=== PATIENT | female | born 1950 | race Caucasian/White ===

== ENCOUNTER 2021-08-16 15:43 | Outpatient (REF) | payer MEDICARE, OTHER, SELFPAY ==
[2021-08-16 20:00] LABS: HCT 40.5 % (36.0-46.0); HGB 12.9 g/dL (11.2-15.7); MCH 31.5 pg (27.0-33.0); MCHC 31.9 % (32.0-36.0); MCV 98.8 fL (80-95); MPV 9.9 fL (8.0-11.0); Platelet Count 333 10^3/uL (130-400); RDW-SD 47.2 fL; WBC 6.05 10^3/uL (4.4-10.8)
[2021-08-16 20:14] LABS: Anion Gap 11.6 mmol/L (3-11); BUN 22 mg/dL (7-18); CO2 25.4 mmol/L (21.0-32.0); Chloride 103 mmol/L (98-107); Estimated GFR 54.81 (mL/min/1.73m2); Glucose 71 mg/dL (74-106); Potassium 4.3 mmol/L (3.5-5.1); Sodium 140 mmol/L (136-145)
== END 2021-08-16 15:44 | disposition home or self-care (01) ==
LOC: NCHCN 15:43
PROVIDERS: Visit Provider Nurse Practitioner Family
DX: Z00.00 Encounter for general adult medical examination without abnormal findings (principal)
CPT/HCPCS: 80048; 85027

== ENCOUNTER 2021-08-25 01:26 | Outpatient (CLI) | payer MEDICARE, OTHER, SELFPAY ==
--- NOTE | 2021-08-25 | DI.MAMMO_ITS ---
Exam(s) MAMMO SCREENING EXAM: MAMMO SCREENING CLINICAL HISTORY: SCREENING, Z12.39 TECHNIQUE: Mammograms were interpreted according to the usual protocol including computer analysis w [employer] CAD system, tomosynthesis and C-view imaging. COMPARISON: FINDINGS: The breasts are heterogeneously dense with fairly symmetrical distribution of fibroglandular tissue. No dominant mass or clumped microcalcification is identified in either breast. Current examination is compared with prior examination of October 2020 and there has been no gross interval change appearance comparison with the previous study. IMPRESSION: No specific evidence of malignancy at this time. Routine screening examinations are suggested at yea rly intervals due to the family history of breast carcinoma. BI-RADS Category 1 - Negative Breast Density - Category C - Heterogeneously dense
== END 2021-08-25 01:46 ==
PROVIDERS: Visit Provider Nurse Practitioner Family
DX: Z12.31 Encounter for screening mammogram for malignant neoplasm of breast (principal); R92.8 Other abnormal and inconclusive findings on diagnostic imaging of breast
CPT/HCPCS: 77063; 77067

== ENCOUNTER 2022-03-02 15:48 | Outpatient (REF) | payer MEDICARE, OTHER, SELFPAY ==
--- NOTE | 2022-03-02 14:40 | PAPFT_PTH ---
PATIENT: Sarah Patterson LOC: [facility] U#:[id number] AGE/SX: 71/F ROOM: RE03/02/[address]: Jerilyn Tadeo DO : 1950 BED: DIS: 03/02/2022 SPEC #: [id number] RECD: 03/02/22 17:39 STATUS: SOUBharat REQ #: [id number] DORIE: 03/02/22 14:[address]: Jerilyn Tadeo DEPT: [facility] Cytology RECD BY: Violet Francois ENTERED: 03/02/22 17:40 SP TYPE: PAPFT OT DR: Unknown,Unknown Tissues: 1 - CX/ENDOCX FOR PAP SMEARS Procedures: PAP THIN PREP/UVM Screening HPV DNA PROBE Comments: [id number]
== END 2022-03-02 15:49 | disposition home or self-care (01) ==
LOC: LBN 15:48
PROVIDERS: Visit Provider Obstetrics & Gynecology
DX: Z12.4 Encounter for screening for malignant neoplasm of cervix (principal); Z11.51 Encounter for screening for human papillomavirus (HPV); Z01.419 Encounter for gynecological examination (general) (routine) without abnormal findings
CPT/HCPCS: 88142; 87624

== ENCOUNTER → 2022-03-28 01:46 | Outpatient (CLI) | payer MEDICARE, OTHER, SELFPAY ==
--- NOTE | 2022-03-28 07:45 | DI.US_ITS ---
Exam(s) US PELVIS EXAM: US PELVIS CLINICAL HISTORY: check anatomy,HANH EXPOSURE IN UTERO, Z91.89 TECHNIQUE: Transabdominal was performed using standard protocol. Patient unable to tolerate transv aginal imaging. COMPARISON: No exams were available for comparison FINDINGS: UTERUS: Anteverted. 5.1 x 1.7 x 2.9 cm Endometrium: 2 mm Myometrium: Unremarkable. Cervix: Unremarkable. OVARIES: Not visible CUL-DE-SAC: Free fluid: None. IMPRESSION: 1. Limited exam. Grossly normal-appearing uterus with endometrial stripe within normal limits. 2. Ovaries not visible DATA REPOSITORY:
== END ==
PROVIDERS: Visit Provider Obstetrics & Gynecology
DX: Z91.89 Other specified personal risk factors, not elsewhere classified (principal); Z77.9 Other contact with and (suspected) exposures hazardous to health; N85.4 Malposition of uterus
CPT/HCPCS: 76856

== ENCOUNTER 2022-04-05 13:39 | Emergency (ER) | payer MEDICARE, OTHER, SELFPAY ==
[2022-04-05 14:07] VITALS: BP 157/79; PULSE 71; RESP 16; TEMP 36.9; O2SAT 97
--- NOTE | 2022-04-05 15:45 | DI.RAD_ITS ---
Exam(s) XR ANKLE LT COMPLETE EXAM: XR ANKLE LT COMPLETE CLINICAL HISTORY: injury, ankle, swelling TECHNIQUE: 2D digital imaging was performed of the left ankle. Three images were obtained. AP, lat eral and oblique views were obtained. COMPARISON: No exams were available for comparison FINDINGS: BONES: No acute fracture is present. No bony destructive lesion is seen. JOINTS:The ankle mortise is normally aligned. SOFT TISSUE: Normal. IMPRESSION: No acute fracture or dislocation. DATA REPOSITORY: RADIATION DOSE DELIVERED:
--- NOTE | 2022-04-05 15:58 | ED.GENADUL_ITS ---
Discharge Plan Disposition Patient Disposition: HOME Condition: Stable Discharge Details Clinical Impression: Contusion of foot, left Primary Care Provider: Brooklyn Weldon ED Provider: Violet Velasco Home Meds and New Rx's Prescriptions: Continued omeprazole 20 mg capsule,delayed release(DR/EC) 20 mg PO DAILY Viibryd 20 mg tablet 40 mg PO DAILY Rx Instructions: must administer with a meal/food calcium carbonate [Tums] 200 mg calcium (500 mg) tablet,chewable 400 mg PO QHS PRN melatonin 5 mg capsule 5 mg PO HS PRN Discharge Instructions Instructions: Contusion in Adults (ED), Foot Contusion (ED) Additional Instructions: Ice, elevate, ibuprofen and Tylenol as needed for pain Return earlier should you have new or worsening complaints You may use Alvarez wrap for compression Discharge Data Discharge Date/Time-TO BE ENTERED AT DEPARTURE: 04/05/22 16:36 Medical Decision Making xray does not show evidence of acute abnormality per radiology interpretation and my review given alvarez wrap return precautions discussed and pt expressed understanding HPI General Date/Time Provider Initiated Documentation: 04/05/22 15:28 . HPI Narrative: This 72-year-old female presents with reports of active injury to left ankle. She states she was chopping wood when she accidentally hit her ankle. She had swelling since that time which is why she presents. She denies any additional injuries and specifically denies any history of anticoagulation. Related Data Home Medications Medication Instructions Recorded Confirmed calcium carbonate 200 mg calcium 400 mg PO QHS PRN 10/28/21 04/05/22 (500 mg) chewable tablet (Tums) melatonin 5 mg capsule 5 mg PO HS PRN 10/28/21 04/05/22 omeprazole 20 mg capsule,delayed 20 mg PO DAILY 10/28/21 04/05/22 release vilazodone 20 mg tablet (Viibryd) 40 mg PO DAILY 10/28/21 04/05/22 Allergies Allergy/AdvReac Type Severity Reaction Status Date / Time No Known Allergies Allergy Verified 04/05/22 14:11 General Stated Complaint: Orthopedic FRANDY: 4 Review of Systems Narrative: Review of systems obtained x3 and negative aside from medication HPI PFSH All Active Problems (Updated 04/05/22 @ 16:01 by NITA Pepper) Contusion of foot, left (Acute) Well woman exam with routine gynecological exam (Acute) 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) Gastrointestinal disorder (Acute) Screening for colon cancer (Acute) Medical History Anxiety Arthritis Borderline personality disorder GERD (gastroesophageal reflux disease) Low back pain Major depression, recurrent Right hip pain Surgical History H/O section Social History Smoking/Tobacco Use Status: Never Smoking risk assessment performed?: Yes Alcohol Intake: never Drug use: Never Substance use type: does not use Do you feel safe at home: Yes Do you feel safe in your relationship?: Yes History History 3 Para 2 Hx # Term Pregnancies 2 Multiple births Hx # Pregnancies Ectopic pregnancies AB induced Hx Number of Living Children 2 AB spontaneous Exam Const General: cooperative, comfortable and no acute distress Course Vital Signs Vital signs: Vital Signs Temperature 36.9 C 04/05/22 14:07 Pulse 71 04/05/22 14:07 Respiratory Rate 16 04/05/22 14:07 Blood Pressure 157/79 H 04/05/22 14:07 Pulse Oximetry 97 04/05/22 14:07 Temperature 36.9 C 04/05/22 14:07 Temperature Source Tympanic 04/05/22 14:07 Pulse 71 04/05/22 14:07 Respiratory Rate 16 04/05/22 14:07 Respiratory Effort Non-Labored 04/05/22 14:13 Blood Pressure 157/79 H 04/05/22 14:07 Blood Pressure Position Sitting 04/05/22 14:07 Pulse Oximetry 97 04/05/22 14:07 Oxygen Delivery Method Room Air 04/05/22 14:07 Oxygen Flow Rate 0 04/05/22 14:07 Pain Level 3 04/05/22 14:22
== END 2022-04-05 16:36 | disposition home or self-care (01) ==
PROVIDERS: Emergency Provider Physician Assistant; PCP Nurse Practitioner Family
DX: S90.32XA Contusion of left foot, initial encounter (principal); W22.8XXA Striking against or struck by other objects, initial encounter
CPT/HCPCS: 99283; 73610; 99282

== ENCOUNTER → 2022-08-04 14:29 | Outpatient (BNVA) | payer MEDICARE, OTHER, SELFPAY | PROVIDERS: PCP Nurse Practitioner Family; Visit Provider Physical Therapy Assistant | DX: Z12.11 Encounter for screening for malignant neoplasm of colon (principal); Z80.0 Family history of malignant neoplasm of digestive organs ==

== ENCOUNTER 2022-08-15 11:26 | Day surgery (SDC) | payer MEDICARE, BC, OTHER, SELFPAY ==
--- NOTE | 2022-08-15 06:58 | W.ANESPRE ---
General Info Height: 5 ft 1 in Weight: 72.121 kg Body Mass Index (BMI): 30.0 Surgical Procedure: Operation Date: 08/15/22 14:05 Proposed Procedure Side Surgeon p Colonoscopy/Gastroscopy Ismael Valladares MD Meds Allergies and Home Medications Allergies Allergy/AdvReac Type Severity Reaction Status Date / Time No Known Allergies Allergy Verified 08/12/22 14:40 Home Medication Medication Instructions Recorded calcium carbonate 200 mg calcium 400 mg PO QHS PRN 10/28/21 (500 mg) chewable tablet (Tums) omeprazole 20 mg capsule,delayed 20 mg PO DAILY 10/28/21 release vilazodone 20 mg tablet (Viibryd) 40 mg PO DAILY 10/28/21 bisacodyl 5 mg tablet,delayed 5 mg PO ONCE #4 tabs 08/04/22 release (Dulcolax (bisacodyl)) lamotrigine 25 mg tablet,extended 75 mg PO DAILY 08/04/22 release 24 hr magnesium 250 mg tablet 250 mg PO DAILY 08/04/22 polyethylene glycol 3350 17 17 g PO ONCE #238 grams 08/04/22 gram/dose oral powder Current Visit Medications: Current Medications Generic Name Dose Route Start Last Admin Trade Name Freq PRN Reason Stop Dose Admin Ringer's Solution 1,000 mls @ 80 mls/hr 08/15/22 06:00 IV 09/11/22 23:59 INFUSION ALBERTO IV Miscellaneous Supplies 1 each 08/15/22 06:00 Iv Access IV 09/11/22 23:59 DIRECTED ALBERTO Sodium Chloride 0 ml 08/15/22 06:00 Normal Saline Flush 10 Ml Syr IV 09/11/22 23:59 PRN PRN Sodium Chloride 0 ml 08/15/22 06:00 Normal Saline 10 Ml Vial IJ 09/11/22 23:59 DIRECTED PRN Sterile Water 0 ml 08/15/22 06:00 Water,Injection,Sterile 10 Ml Vial IJ 09/11/22 23:59 DIRECTED PRN PFSH Active Problems Active Problems: Problem Status Onset Code Well woman exam with routine gynecological exam Z01.419 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 Z91.89 Gastrointestinal disorder K92.9 Screening for colon cancer Z12.11 Medical History Medical History Anxiety Arthritis Borderline personality disorder GERD (gastroesophageal reflux disease) Low back pain Major depression, recurrent Right hip pain Surgical History Surgical History H/O section Tobacco Smoking/Tobacco Use Status: Never Alcohol Alcohol Intake: former Year quit: 2019 Substance Use Substance use: Never Substance use type: does not use Prental History History 3 Para 2 Hx # Term Pregnancies 2 Multiple births Hx # Pregnancies Ectopic pregnancies AB induced Hx Number of Living Children 2 AB spontaneous Vital Signs and Lab Results Lab Results Blood Type / Crossmatch: No Data to Display Complete Blood Count: No Data to Display Complete Metabolic Panel: No Data to Display Liver Function Panel: No Data to Display Coagulation Panel: No Data to Display Cardiac Panel: No Data to Display Arterial Blood Gas: No Data to Display Venous Blood Gas: No Data to Display Pancreas Panel: No Data to Display Thyroid Panel: No Data to Display Infectious Disease: No Data to Display Blood Cultures: No Data to Display Toxicology Panel: No Data to Display Anesthesia Assessment and Plan Anesthesia History Personal History: No History of Anesthesia Complications Family History: No Family History of Anesthesia Complications Exercise Tolerance Exercise Tolerance: Metabolic Equivalents>4 Implantable Cardiac Device Does patient have a Pacemaker or an ICD?: No ASA Classification ASA Score: ASA 2 Emergency Case?: No NPO Status NPO Status: NPO Clears >2 hours, Solids >8 hours Anesthesia Plan Resuscitation Status: Full Code Anesthesia Technique: MAC Anesthesia Airway Planned: Natural Airway Monitors Used: Standard Monitors Preoperative Comments:: 72 yo female for cataract removal. Sig PMHx: anxiety/depression (vilazodone), GERD (omeprazole), back pain, never smoker, former EtOH.
[2022-08-15 12:12] VITALS: BP 144/79; PULSE 74; RESP 16; TEMP 36.2; O2SAT 98
[2022-08-15] MEDS: Lactated Ringers 1,000 ML 80 ML IV (12:30)
--- NOTE | 2022-08-15 13:32 | W.ANESPRE ---
General Info Date of Service Date Performed: 08/15/22 Height: 5 ft 1 in Weight: 72.3 kg Body Mass Index (BMI): 30.1 Surgical Procedure: Operation Date: 08/15/22 13:20 Proposed Procedure Side Surgeon p Colonoscopy/Gastroscopy Ismael Valladares MD Meds Allergies and Home Medications Allergies Allergy/AdvReac Type Severity Reaction Status Date / Time No Known Allergies Allergy Verified 08/12/22 14:40 Home Medication Medication Instructions Recorded calcium carbonate 200 mg calcium 400 mg PO QHS PRN 10/28/21 (500 mg) chewable tablet (Tums) omeprazole 20 mg capsule,delayed 20 mg PO DAILY 10/28/21 release vilazodone 20 mg tablet (Viibryd) 40 mg PO DAILY 10/28/21 bisacodyl 5 mg tablet,delayed 5 mg PO ONCE #4 tabs 08/04/22 release (Dulcolax (bisacodyl)) lamotrigine 25 mg tablet,extended 75 mg PO DAILY 08/04/22 release 24 hr magnesium 250 mg tablet 250 mg PO DAILY 08/04/22 polyethylene glycol 3350 17 17 g PO ONCE #238 grams 08/04/22 gram/dose oral powder Current Visit Medications: Current Medications Generic Name Dose Route Start Last Admin Trade Name Freq PRN Reason Stop Dose Admin Ringer's Solution 1,000 mls @ 80 mls/hr 08/15/22 06:00 08/15/22 12:30 IV 09/11/22 23:59 80 mls/hr INFUSION ALBERTO Administration IV Miscellaneous Supplies 1 each 08/15/22 06:00 Iv Access IV 09/11/22 23:59 DIRECTED ALBERTO Sodium Chloride 0 ml 08/15/22 06:00 Normal Saline Flush 10 Ml Syr IV 09/11/22 23:59 PRN PRN Sodium Chloride 0 ml 08/15/22 06:00 Normal Saline 10 Ml Vial IJ 09/11/22 23:59 DIRECTED PRN Sterile Water 0 ml 08/15/22 06:00 Water,Injection,Sterile 10 Ml Vial IJ 09/11/22 23:59 DIRECTED PRN PFSH Active Problems Active Problems: Problem Status Onset Code Screening for colon cancer Z12.11 Gastrointestinal disorder K92.9 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 Z91.89 Well woman exam with routine gynecological exam Z01.419 Medical History Medical History Anxiety Arthritis Borderline personality disorder GERD (gastroesophageal reflux disease) Low back pain Major depression, recurrent Right hip pain Surgical History Surgical History (Updated 08/15/22 @ 12:08 by Spencer Novak) H/O section History of tonsillectomy Tobacco Smoking/Tobacco Use Status: Never Alcohol Alcohol Intake: former Year quit: 2019 Substance Use Substance use: Never Substance use type: does not use Prental History History 3 Para 2 Hx # Term Pregnancies 2 Multiple births Hx # Pregnancies Ectopic pregnancies AB induced Hx Number of Living Children 2 AB spontaneous Vital Signs and Lab Results Vital Signs Most Recent Vital Signs in EMR: Most Recent Vital Signs Temp Pulse Resp BP Pulse Ox 36.2 C L 74 16 144/79 H 98 08/15/22 12:12 08/15/22 12:12 08/15/22 12:12 08/15/22 12:12 08/15/22 12:12 Lab Results Blood Type / Crossmatch: No Data to Display Complete Blood Count: No Data to Display Complete Metabolic Panel: No Data to Display Liver Function Panel: No Data to Display Coagulation Panel: No Data to Display Cardiac Panel: No Data to Display Arterial Blood Gas: No Data to Display Venous Blood Gas: No Data to Display Pancreas Panel: No Data to Display Thyroid Panel: No Data to Display Infectious Disease: No Data to Display Blood Cultures: No Data to Display Toxicology Panel: No Data to Display Anesthesia Assessment and Plan Anesthesia History Personal History: No History of Anesthesia Complications Family History: No Family History of Anesthesia Complications Exercise Tolerance Exercise Tolerance: Metabolic Equivalents>4 Pertinent Negatives Pertinent Negatives: No Major Cardiovascular Symptoms or Complaints and No Major Pulmonary Symptoms or Complaints Cardiac & Pulmonary Exam Cardiac Exam: Normal S1/S2 Heart Sounds Pulmonary Exam: Clear Bilateral Breath Sounds Implantable Cardiac Device Does patient have a Pacemaker or an ICD?: No Airway Exam Known Difficult Airway: No Mallampati Class: 2 Mouth Opening: Normal (> 3cm) Thyromental Distance: Greater than 3 cm Neck Range of Motion: Full ROM Neck Circumference: Normal Teeth Condition: Normal Dentition Airway Comments: Loose crown last week, reports it was fixed and reglued ASA Classification ASA Score: ASA 2 Emergency Case?: No NPO Status NPO Status: NPO Clears >2 hours, Solids >8 hours Anesthesia Plan Resuscitation Status: Full Code Anesthesia Technique: General Anesthesia Airway Planned: Natural Airway Monitors Used: Standard Monitors
[2022-08-15 13:33] VITALS: BMI 30.1
--- NOTE | 2022-08-15 14:28 | W.PM.DSUDISC ---
Date of service: 08/15/22 Time of Service: 15:06 Discharge Plan Disposition Patient Disposition: Home Condition: Good Discharge Details Reason For Visit: EGD and colonoscopy Attending Provider: Ismael Valladares Primary Care Provider: Brooklyn Weldon Home Meds and New Rx's Prescriptions: Continued lamotrigine 25 mg tablet extended release 24hr 75 mg PO DAILY magnesium 250 mg tablet 250 mg PO DAILY omeprazole 20 mg capsule,delayed release(DR/EC) 20 mg PO DAILY Viibryd 20 mg tablet 40 mg PO DAILY Rx Instructions: must administer with a meal/food calcium carbonate [Tums] 200 mg calcium (500 mg) tablet,chewable 400 mg PO QHS PRN Discontinued bisacodyl [Dulcolax (bisacodyl)] 5 mg tablet,delayed release (DR/EC) 5 mg PO ONCE Qty: 4 0RF Rx Instructions: Take according to provider's instructions for colonoscopy prep. polyethylene glycol 3350 17 gram/dose powder 17 g PO ONCE Qty: 238 0RF Rx Instructions: To be taken as directed by prescriber's office for colonoscopy prep. Discharge Instructions Instructions: Hiatal Hernia (GEN) Additional Instructions: Sarah, we were able to complete your upper and lower endoscopy today without any difficulty. Your upper endoscopy shows that you have a hiatal hernia. This means that part of your stomach is slipped up above your diaphragm (breathing muscle). In and of itself the type that you have is not dangerous, but it can contribute to many of the symptoms that you experience like gastroesophageal reflux disease. There is an operation to fix this, but it is quite a large surgery, and my general recommendation is to avoid it so long as you can manage her symptoms on a day-to-day basis. Your lower endoscopy was totally normal. I saw no polyps, cancers, or any other worrisome findings. With a family history of colon cancer, I recommend that you undergo routine surveillance colonoscopies every 5 years. 1. If tolerated, consume a soft, low fiber diet for 1-2 days. 2. Do not drive, drink alcohol, operate machinery, make critical decisions, or do activities that require coordination or balance for 24 hours. 3. Because air was put into your colon during the procedure, expelling air from your rectum (passing gas or farting) is normal. 4. You may not have a bowel movement for 1-3 days because of the colonoscopy prep. This is normal. 5. You may experience a sore throat for 24 to 48 hours. You may use throat lozenges or gargle with warm salt water to relieve the discomfort. 6. Because air was put into your stomach during the procedure, you may experience some belching. 7. Go directly to the emergency room if you notice any of the following: Develop chills (warm to touch), or if you have a thermometer and your temperature is above 101 Difficulty breathing or difficultly swallowing Persistent vomiting Severe abdominal pain, other than gas cramps Severe chest pain Black, tarry stools Any bleeding ? exceeding one tablespoon 8. Call your physician if the site where your intravenous was started becomes red, swollen, painful, and warm to touch. 9. Your physician has reviewed your pre-procedure medications. Please continue to take those medications as previously ordered. You will be given specific information/education regarding any changes to your medications before leaving. Activity:: Activity as Tolerated Diet:: As Tolerated Discharge Orders Discharge Orders: Discharge Order (Routine); Ordered 08/15/22 Ordered By: Ismael Valladares DS: Diagnosis Discharge Diagnosis (1) Screening for colon cancer: Status: Acute
--- NOTE | 2022-08-15 14:32 | ENDO_ITS ---
Date of service: 08/15/22 Time of Service: 14:54 Endoscopy Report DATE OF PROCEDURE: 08/15/22 PRE-OP DIAGNOSIS: Gastroesophageal disease, screening colonoscopy POST-OP DIAGNOSIS: other (Hiatal hernia, screening colonoscopy) PROCEDURE: EGD, colonoscopy SURGEON: Ismael Valladares ANESTHESIA TYPE: General:No Airway ESTIMATED BLOOD LOSS: 0 PATHOLOGY: none sent COMPLICATIONS: None DISPOSITION: same day INDICATIONS: Sarah is a 72-year-old woman with longstanding gastroesophageal. She also has a first-degree relative with colon cancer. He is here for a screening EGD to rule out Wei's esophagus, as well as a screening colonoscopy PROCEDURE START TIME: 14:36 PROCEDURE END TIME: 14:54 COLONOSCOPY RETRACTION TIME: 9 FINDINGS: Hiatal hernia, normal PROCEDURE DESCRIPTION: After the initiation of monitored anesthetic care, and with the assistance of a bite block, I advanced a standard gastroscope through the mouth past the hypopharynx and into the esophagus.? Under the direct vision of the scope, I advanced down the esophagus into the stomach.? There was a moderate-sized hiatal hernia once I entered the stomach, I performed a brief inspection, followed by retroflexion towards the gastric cardia.? Again, this confirmed the presence of a hiatal hernia that contained the gastric cardia, as well as the GE junction. The edges of the hernia appeared clean, nonerythematous, and I saw no evidence of ulceration. After that, I gently advanced the scope around the incisura angularis and examined the pylorus.? This also appeared normal.? Next, I advanced the scope through the pylorus into the duodenum.? The mucosa was pink and healthy appearing.? There were no abnormalities. ?Next, I began retracting the endoscope.? I then gently desufflated some of the stomach, and withdrew the endoscope into the distal esophagus. The GE junction and Z-line were normal- appearing around 36 cm. ?Finally, I withdrew the scope along the length of the esophagus taking great care to examine the entirety of the mucosa.? I did not appreciate any abnormalities. We then moved Rosanna into the left lateral decubitus position. I began by performing an external anorectal exam.? Perineum and skin were normal, as was the anal verge.? There was no evidence of external hemorrhoids.? Next, I performed a digital rectal exam.? I did not appreciate any abnormal findings.? Next, I advanced a colonoscope into the rectal vault.? I performed retroflexion.? This was normal.? Using insufflation, I then advanced the colonoscope beyond the rectal folds and into the sigmoid colon before advancing towards the cecum.? The quality of the prep was excellent.? The scope was noted to be in the cecum by identification of the ileocecal valve and appendiceal orifice.? I then began withdrawing the colonoscope using repeated irrigation as necessary for full evaluation of the colonic mucosa. ?Once the scope was withdrawn to the level of the rectum, great care was taken to examine portions of the rectal folds.? I did not see any signs of any tumors polyps, or any other worrisome pathology. Finally, the scope was withdrawn and the patient was brought to the same-day surgery recovery unit as the anesthetic wore off.
[2022-08-15 15:00] VITALS: BP 125/74; PULSE 65; RESP 16; TEMP 37; O2SAT 97
--- NOTE | 2022-08-15 15:15 | W.ANESPOSTOP ---
Postoperative Evaluation Date, Time and Location Date Performed: 08/15/22 Time Performed: 15:15 Patient Location: Day Surgery Unit Vital Signs Most Recent Imported Vital Signs: Most Recent Vital Signs Temp Pulse Resp BP Pulse Ox 37.0 C 65 16 125/74 97 08/15/22 15:00 08/15/22 15:00 08/15/22 15:00 08/15/22 15:00 08/15/22 15:00 Pain Score Most Recent Pain Score: Most Recent Pain Score Pain Level 0 08/15/22 15:00 Assessment Mental Status: Awake (Alert & Oriented to Patient Baseline) Airway and Respiratory Function: Patent airway with normal (patient baseline) respiratory exam Cardiovascular Function: Hemodynamically Stable Hydration Status: Adequately Hydrated Nausea & Vomiting: No Nausea or Vomiting Pain: Pt. Denies Any Pain Peripheral Nerve Block: Patient did not receive a nerve block
[2022-08-15 15:30] VITALS: BP 129/88; PULSE 71; RESP 16; TEMP 37; O2SAT 100
== END 2022-08-15 15:55 | disposition home or self-care (01) ==
PROVIDERS: PCP Nurse Practitioner Family; Visit Provider Surgery
PROC: (CPT 43235; principal; 2022-08-15 13:15)
DX: Z12.11 Encounter for screening for malignant neoplasm of colon (principal); Z80.0 Family history of malignant neoplasm of digestive organs; K21.9 Gastro-esophageal reflux disease without esophagitis; K44.9 Diaphragmatic hernia without obstruction or gangrene
CPT/HCPCS: 43235; G0105

== ENCOUNTER → 2023-02-08 12:41 | Outpatient (CLI) | payer MEDICARE, BC, OTHER, SELFPAY ==
--- NOTE | 2023-02-08 | DI.RAD_ITS ---
Exam(s) XR FOOT LT COMPLETE EXAM: XR FOOT LT COMPLETE CLINICAL HISTORY: PAIN IN LEFT HEEL--M79.672. TECHNIQUE: 2D digital imaging was performed of the left foot. Images were obtained. AP, oblique a nd lateral views were obtained. COMPARISON: CR XR ANKLE LT COMPLETE from 04/05/2022 FINDINGS: BONES: No acute fracture is present. No bony destructive lesion is seen. There is a small plantar kenya caneal spur. There is a small enthesophyte at the posterior calcaneus. This is unchanged compared t o the prior examination. JOINTS: No dislocation present. SOFT TISSUE: Normal. IMPRESSION: No acute abnormality. DATA REPOSITORY: RADIATION DOSE DELIVERED:
== END ==
PROVIDERS: PCP Nurse Practitioner Family; Visit Provider Physician Assistant Medical
DX: M79.672 Pain in left foot (principal)
CPT/HCPCS: 73630

== ENCOUNTER 2023-07-10 16:54 | Outpatient (REF) | payer MEDICARE, OTHER, SELFPAY ==
[2023-07-10 16:01] LABS: Abs Immature Grans 0.01 10^3/uL (0.0-0.06); Absolute Basophil Count 0.04 10^3/uL (0.0-0.2); Absolute Eosinophil Count 0.09 10^3/uL (0.0-0.7); Absolute Lymphocyte Count 1.58 10^3/uL (1.2-3.4); Absolute Monocyte Count 0.43 10^3/uL (0.1-0.8); Absolute Neutrophil Count 3.37 10^3/uL (1.2-6.7); Basophils % 0.7; Eosinophils % 1.6; HCT 42.1 % (36.0-46.0); HGB 13.7 g/dL (11.2-15.7); Immature Grans % 0.2; Lymphocytes % 28.6; MCH 31.1 pg (27.0-33.0); MCHC 32.5 % (32.0-36.0); MCV 96 fL (80-95); MPV 9.9 fL (8.0-11.0); Monocytes % 7.8; Neutrophils % 61.1; Platelet Count 296 10^3/uL (130-400); RBC 4.41 10^6/uL (3.93-5.22); RDW 12.9 % (11.7-14.6); RDW-SD 45.7 fL; WBC 5.52 10^3/uL (4.4-10.8)
[2023-07-10 16:13] LABS: ALT 28 U/L (14-59); AST 28 U/L (15-37); Albumin 3.6 g/dL (3.4-5.0); Alkaline Phosphatase 83 U/L (46-116); Anion Gap 6.2 mmol/L (3-11); BUN 15 mg/dL (7-18); Bilirubin, Total 0.3 mg/dL (0.2-1.0); CO2 28.8 mmol/L (21.0-32.0); CREATININE 0.8 mg/dL (0.55-1.02); Calcium 9.2 mg/dL (8.5-10.1); Calculated LDL 122 mg/dL (<100); Chloride 103 mmol/L (98-107); Cholesterol 254 mg/dL (<200); Estimated GFR 78.24 (mL/min/1.73m2); Glucose 77 mg/dL (74-106); HDL Cholesterol 116 mg/dL (40-60); Magnesium 2.1 mg/dL (1.8-2.4); Sodium 138 mmol/L (136-145); Total Protein 7.5 g/dL (6.4-8.2); Triglyceride 81 mg/dL (<150)
== END 2023-07-10 16:55 | disposition home or self-care (01) ==
LOC: NCHCN 16:54
PROVIDERS: PCP Nurse Practitioner Family; Visit Provider Nurse Practitioner Family
DX: Z51.81 Encounter for therapeutic drug level monitoring (principal); R19.7 Diarrhea, unspecified; Z13.220 Encounter for screening for lipoid disorders
CPT/HCPCS: 80053; 80061; 80175; 83735; 85025

== ENCOUNTER → 2023-07-27 01:41 | Outpatient (CLI) | payer MEDICARE, OTHER, SELFPAY ==
--- NOTE | 2023-07-27 | DI.DEXA_ITS ---
Exam(s) XR DEXA BONE DENSITY W/WO KARIME EXAM: XR DEXA BONE DENSITY W/WO KARIME CLINICAL HISTORY: OSTEOPENIA,m85.88 TECHNIQUE: HoloTapad C densitometer analysis of left hip, lumbar spine and left forearm. Lat eral survey image of the thoracic and lumbar spine. COMPARISON: No exams were available for comparison FINDINGS: Lateral view of the thoracic and lumbar spine shows increased kyphosis but no definite compression fr actures. Degenerative changes and scoliosis in the lumbar region. Bone mineral density measurements of the lumbar spine correspond to a total T-score of 0.6, in the n ormal range. Bone mineral density measurements of the left hip correspond to a total T-score of -1.3 . The femora l neck T-score is -1.7, in the osteopenic range. . Theleft forearm bone mineral density measurements correspond to a T-score of the distal 3rd of -2.0, in the osteopenic range.. IMPRESSION: Normal bone mineral density of the spine. Osteopenia of the hip and forearm.
--- NOTE | 2023-07-27 | DI.MAMMO_ITS ---
Exam(s) MAMMO SCREENING EXAM: MAMMO SCREENING CLINICAL HISTORY: SCREENING,z12.31 TECHNIQUE: Mammograms were interpreted according to the usual protocol including computer analysis w [employer] CAD system, tomosynthesis and C-view imaging. COMPARISON: US US BREAST COMPLETE - BILATERAL from 11/26/2020 [facility] MAMMO SCREENING from 08/25/2021 mammograms 2020 and 2021 FINDINGS: The breasts are composed of scattered fibroglandular densities, Breast Density category B. No suspicious masses or suspicious microcalcifications are seen. No skin thickening or abnormal axillary lymph nodes are seen. There has been no significant change from prior exams. IMPRESSION: BI-RADS Category 1, Negative mammogram Yearly screening mammography is recommended. Breast Density - Category B, scattered fibroglandular densities. A negative radiographic report should not delay biopsy if a dominant or clinically suspicious mass is present. Up to ten percent of cancers are not identified on mammography. A negative report may reinforce clinical impression. Adenosis and dense breasts may obscure an underlying neoplasm. False positive reports average 6 to 10%. Patient will receive a letter notifying them of these results.
== END ==
PROVIDERS: PCP Nurse Practitioner Family; Visit Provider Nurse Practitioner Family
DX: M85.88 Other specified disorders of bone density and structure, other site (principal); Z12.31 Encounter for screening mammogram for malignant neoplasm of breast; Z13.820 Encounter for screening for osteoporosis
CPT/HCPCS: 77063; 77067; 77080

== ENCOUNTER 2024-05-22 13:30 | Outpatient (REF) | payer MEDICARE, OTHER, SELFPAY ==
[2024-05-22 20:17] LABS: Abs Immature Grans 0.02 10^3/uL (0.0-0.06); Absolute Basophil Count 0.07 10^3/uL (0.0-0.2); Absolute Eosinophil Count 0.09 10^3/uL (0.0-0.7); Absolute Monocyte Count 0.41 10^3/uL (0.1-0.8); Absolute Neutrophil Count 3.54 10^3/uL (1.2-6.7); Basophils % 1.2 %; Eosinophils % 1.5 %; HCT 39.9 % (36.0-46.0); Immature Grans % 0.3 %; Lymphocytes % 30.4 %; MCH 31.7 pg (27.0-33.0); MCHC 32.6 % (32.0-36.0); MCV 97 fL (80-95); MPV 9.6 fL (8.0-11.0); Monocytes % 6.9 %; Neutrophils % 59.7 %; Platelet Count 323 10^3/uL (130-400); RDW 13.2 % (11.7-14.6); RDW-SD 47.7 fL; WBC 5.93 10^3/uL (4.4-10.8)
[2024-05-22 20:28] LABS: ALT 22 U/L (14-59); AST 25 U/L (15-37); Albumin 3.6 g/dL (3.4-5.0); Alkaline Phosphatase 107 U/L (46-116); Anion Gap 3.6 mmol/L (3-11); BUN 20 mg/dL (7-18); Bilirubin, Total 0.31 mg/dL (0.2-1.0); CO2 30.4 mmol/L (21.0-32.0); CREATININE 0.9 mg/dL (0.55-1.02); Calcium 9.5 mg/dL (8.5-10.1); Chloride 105 mmol/L (98-107); Glucose 90 mg/dL (74-106); Sodium 139 mmol/L (136-145); Total Protein 7.5 g/dL (6.4-8.2)
[2024-05-25 13:57] LABS: Lamotrigine 4.7 mcg/mL (3.0-15.0)
== END 2024-05-22 13:31 | disposition home or self-care (01) ==
LOC: NCHCN 13:30
PROVIDERS: Visit Provider Nurse Practitioner Family
DX: Z51.81 Encounter for therapeutic drug level monitoring (principal); K21.9 Gastro-esophageal reflux disease without esophagitis
CPT/HCPCS: 80053; 80175; 85025